=== PATIENT | male | born 1975 | race Caucasian/White ===

== ENCOUNTER → 2016-02-19 | Outpatient (CLI) | payer BC ==
--- NOTE | 2016-02-19 09:29 | REP ---
Clinical: Acute cough . Comparison: 11/16/2014 . Technique: PA and lateral. Findings: The mediastinum and cardiac silhouette are normal. The lung centeno are clear and without acute consolidation, effusion, or pneumothorax. The skeletal structures are intact and normal. Impression: 1. No acute cardiopulmonary process. Signed by Saw Torrez MD 02/19/2016 09:20 A
== END ==
LOC: M SMT 08:39
PROVIDERS: ATTEND Family Medicine
DX: R05 Cough (principal); R61 Generalized hyperhidrosis

== ENCOUNTER → 2016-11-10 | Outpatient (CLI) | payer BC ==
[2016-11-10 14:12] LABS: BASO % 0.5 % (0.0-1.0); EOS # 0.2 10^3/uL (0.0-0.50); EOS % 4.6 % (0.0-3.0); IMMATURE GRANULOCYTE % 0.3 % (0-0); LYMPH # 1.4 10^3/uL (1.5-4.5); LYMPH % 37.1 % (24.0-44.0); MEAN CORPUSCULAR HEMOGLOBIN 31.1 pg (27.0-33.0); MEAN CORPUSCULAR VOLUME 91.4 fl (80.0-96.0); MONO # 0.4 10^3/uL (0.0-0.8); NEUTROPHILS # 1.7 10^3/uL (1.8-7.7); NEUTROPHILS % 46.5 % (36.0-66.0); RED CELL DISTRIBUTION WIDTH 12.2 % (11.5-14.5); WHITE BLOOD COUNT 3.7 10^3/uL (4.0-10.0)
[2016-11-10 16:03] LABS: ALBUMIN 3.7 GM/DL (3.2-5.2); ALBUMIN/GLOBULIN RATIO 1.16 (1.00-1.93); ALKALINE PHOSPHATASE 64 U/L (45-117); ALT/SGPT 24 U/L (12-78); ANION GAP 8 MEQ/L (8-16); AST/SGOT 14 U/L (15-37); BILIRUBIN,TOTAL 0.6 MG/DL (0.2-1.0); BLOOD UREA NITROGEN 18 MG/DL (7-18); CALCIUM LEVEL 8.7 MG/DL (8.5-10.1); CARBON DIOXIDE LEVEL 28 MEQ/L (21-32); CHLORIDE LEVEL 104 MEQ/L (98-107); COMPLEMENT C4 23.8 MG/DL (10-40); CREATININE FOR GFR 1.01 MG/DL (0.70-1.30); GLOMERULAR FILTRATION RATE > 60.0 (>60); GLUCOSE, FASTING 109 MG/DL (70-105); IMMUNOGLOBULIN G 1200 MG/DL (681-1648); IMMUNOGLOBULIN M 58.7 MG/DL (40-230); POTASSIUM SERUM 4.1 MEQ/L (3.5-5.1); SODIUM LEVEL 140 MEQ/L (136-145); THYROXINE (T4) 7.2 UG/DL (4.5-12.0); TOTAL PROTEIN 6.9 GM/DL (6.4-8.2)
[2016-11-11 09:32] LABS: THYROID PEROXIDASE ANTIBODY < 28.0 U/ML (<60.0)
[2016-11-13 00:06] LABS: IMMUNOGLOBULIN D 0.14 mg/dL (<14.11)
[2016-11-18 14:24] LABS: COMPLEMENT C2 2.5 mg/dL (1.6-4.0); COMPLEMENT TOTAL (CH50) 52 U/mL (42-60)
== END ==
LOC: M WUC 10:21
PROVIDERS: ATTEND Allergy & Immunology Allergy
DX: L30.9 Dermatitis, unspecified (principal)

== ENCOUNTER → 2020-03-13 | Outpatient (CLI) | payer OTHER ==
[2020-03-13 12:58] LABS: HEMATOCRIT 48.5 % (42.0-52.0); HEMOGLOBIN 16.5 g/dl (13.5-17.5); MEAN CORPUSCULAR HEMOGLOBIN 30.9 pg (27.0-33.0); MEAN CORPUSCULAR VOLUME 90.8 fl (80.0-96.0); PLATELET COUNT, AUTOMATED 203 10^3/uL (150-450); RED BLOOD COUNT 5.34 10^6/uL (4.30-6.10); WHITE BLOOD COUNT 6.5 10^3/uL (4.0-10.0)
--- NOTE | 2020-03-13 13:15 | REP ---
INDICATION: SCIATICA, RIGHT SIDE COMPARISON: None. TECHNIQUE: AP, lateral, bilateral oblique, and coned-down views of the lumbar spine. FINDINGS: Alignment and lordosis maintained. Vertebral bodies are intact. No acute fracture/compression injury or subluxation. No obvious spondylolysis or spondylolisthesis. Endplate sclerosis and disc space narrowing at L5-S1 noted. Remainder of the examination is essentially age-appropriate and without further degenerative changes. IMPRESSION: Focal degenerative changes at L5-S1. <Electronically signed by Saw Torrez > 03/13/20 [id number]
[2020-03-13 13:22] LABS: ALBUMIN 4.2 GM/DL (3.2-5.2); ALT/SGPT 28 U/L (12-78); BILIRUBIN,TOTAL 0.9 MG/DL (0.2-1.0); BLOOD UREA NITROGEN 18 MG/DL (7-18); CALCIUM LEVEL 9.8 MG/DL (8.5-10.1); CARBON DIOXIDE LEVEL 29 MEQ/L (21-32); CHLORIDE LEVEL 106 MEQ/L (98-107); CHOLESTEROL LEVEL 192 MG/DL (<200); CHOLESTEROL RISK RATIO 2.909 (<5); CREATININE FOR GFR 1.03 MG/DL (0.70-1.30); GLOMERULAR FILTRATION RATE > 60.0 (>60); GLUCOSE, FASTING 106 MG/DL (70-100); HDL CHOLESTEROL 66 MG/DL (>40); LDL CHOLESTEROL 119 MG/DL (<100); NON-HDL-C 126 MG/DL; POTASSIUM SERUM 4.1 MEQ/L (3.5-5.1); SODIUM LEVEL 140 MEQ/L (136-145); TOTAL PROTEIN 7.7 GM/DL (6.4-8.2); TRIGLYCERIDES LEVEL 33 MG/DL (<150)
== END ==
LOC: M WUC 09:29
PROVIDERS: ATTEND Family Medicine
DX: M54.31 Sciatica, right side (principal); M51.37 Other intervertebral disc degeneration, lumbosacral region; Z11.9 Encounter for screening for infectious and parasitic diseases, unspecified; Z79.899 Other long term (current) drug therapy

== ENCOUNTER 2020-03-23 11:43 | Emergency (ER) | payer OTHER ==
[~2020-03-23] VITALS: Ht 190.5 cm; Wt 96.8 kg
--- OUTSIDE RECORDS SUMMARY | 2020-03-23 11:48 | CCD ---
Author Author [facility] Organization [facility] Address Unknown Phone Unavailable Support Name Relationship Address Phone Lyn RODRIGEZ Next Of Kin [address] [place] [address] [address] [place] [address] SELF EMPLOYED Next Of Kin [address] [place] [address] VINCENT [place] [address] UE Next Of Kin Unknown Unavailable Re-disclosure Warning The records that you are about to access may contain information from federally-assisted alcohol or drug abuse programs. If such information is present, then the following federally mandated warning applies: This information has been disclosed to you from records protected by federal confidentiality rules (42 CFR part 2). The federal rules prohibit you from making any further disclosure of this information unless further disclosure is expressly permitted by the written consent of the person to whom it pertains or as otherwise permitted by 42 CFR part 2. A general authorization for the release of medical or other information is NOT sufficient for this purpose. The Federal rules restrict any use of the information to criminally investigate or prosecute any alcohol or drug abuse patient.The records that you are about to access may contain highly sensitive health information, the redisclosure of which is protected by Article 27-F of the [facility] Public Health law. If you continue you may have access to information: Regarding HIV / AIDS; Provided by facilities licensed or operated by the [facility] Office of Mental Health; or Provided by the [facility] Office for People With Developmental Disabilities. If such information is present, then the following [facility] mandated warning applies: This information has been disclosed to you from confidential records which are protected by state law. State law prohibits you from making any further disclosure of this information without the specific written consent of the person to whom it pertains, or as otherwise permitted by law. Any unauthorized further disclosure in violation of state law may result in a fine or residential sentence or both. A general authorization for the release of medical or other information is NOT sufficient authorization for further disc losure. Family History Family Member Name Family Member Gender Family Member Status Date o f Status Description Data Source(s) Unknown Male Problem [facility] ([facility]) Unknown Male Problem [facility] ([facility]) Medications Medication Brand Name Start Date Product Form Dose Route Admi nistrative Instructions Pharmacy Instructions Status Indications Reaction Description Data Source(s) 20 mg 03/12/2020 12:00:00 AM EST tablet 10 TAKE ONE TABLET BY MOUTH TWICE A DAY FOR 5 DAYS TAKE ONE TABLET BY MOUTH TWICE A DAY FOR 5 DAYS SOLD: 2020 [facility] Cyclobenzaprine hydrochloride 10 MG Oral Tablet CYCLOBENZAPR INE HCL 03/12/2020 12:00:00 AM EST tablet 20 TAKE ONE TABLET BY MOUTH TWICE A DAY NEEDED FOR 10 DAYS TAKE ONE TABLET BY MOUTH TWICE A DAY NEEDED FOR 10 DAYS SOLD: 03/12/2020 [facility] doxycycline hyclate 100 MG Oral Capsule DOXYCYCLINE HYCLATE 12/23/2019 12:00:00 AM EST capsule 2 TAKE 2 CAPSULES BY MOUTH ONE TIME FOR ONE DOSE TAKE 2 CAPSULES BY MOUTH ONE TIME FOR ONE DOSE SOLD: 12/23/2019 [facility] Insurance Providers Payer name Policy type / Coverage type Policy ID Covered democrat ID Covered democrat's relationship to mannign Policy Manning Plan Information OBDULIA [id number] SP [id number] O[employer] [id number] 18 [id number] [facility] [id number] 18 [id number] [place] PPO 302/307 [id number] SP [id number] [facility] [employer] U/W Commercial YNC [id number] Self YNC [id number] [employer] BCBS B [id number] S YNC [id number] [facility] Commercial Self SELF PAY UNAVAILABLE SP UNAVAILA BLE
[2020-03-23] MEDS ORDERED: CYCL-707 (11:50)
[2020-03-23] MEDS ORDERED: BOOSTRIX/ADACEL VACCINE (DIPHTH/PERTUSS/ACELL/TETANUS) 0.5ML SYR IM ONE (12:30)
[2020-03-23] MEDS ORDERED: LIDOCAINE 1% MDV 20ML VIAL SC ONE (12:30)
--- OUTSIDE RECORDS SUMMARY | 2020-03-23 12:40 | CCD ---
Author Author [facility] Organization [facility] Address Unknown Phone Unavailable Support Name Relationship Address Phone SELF Next Of Kin Unknown Unavailable INDERJIT RODRIGEZ Next Of Kin [address] [facility] [address] [place], [place] [id number] SELF EMPLOYED Next Of Kin [address] [place] [address] VINCENT [place] [address] UE Next Of Kin Unknown Unavailable Re-disclosure [...] is protected by Article 27-F of the [facility] Public Health law. If you continue you may have access to information: Regarding HIV / AIDS; Provided by facilities licensed or operated by the [facility] Office of Mental Health; or Provided by the [facility] Office for People With Developmental Disabilities. If such information is present, then the following [facility] mandated warning applies: This information has been [...] law may result in a fine or long-term sentence or both. A general authorization for the release of medical or other information is NOT sufficient authorization for further disc losure. Family History Family Member Name Family Member Gender Family Member Status Date o f Status Description Data Source(s) Unknown Male Problem [facility] ([facility]) Unknown Male Problem [facility] ([facility]) Medications Medication Brand Name Start Date Product Form Dose Route Admi nistrative Instructions Pharmacy Instructions Status Indications Reaction Description Data Source(s) 20 mg 03/12/2020 12:00:00 AM EST tablet 10 TAKE ONE TABLET BY MOUTH TWICE A DAY FOR 5 DAYS TAKE ONE TABLET BY MOUTH TWICE A DAY FOR 5 DAYS SOLD: 2020 [facility] Cyclobenzaprine hydrochloride 10 MG Oral Tablet CYCLOBENZAPR INE HCL 03/12/2020 12:00:00 AM EST tablet 20 TAKE ONE TABLET BY MOUTH TWICE A DAY NEEDED FOR 10 DAYS TAKE ONE TABLET BY MOUTH TWICE A DAY NEEDED FOR 10 DAYS SOLD: 03/12/2020 [facility] doxycycline hyclate 100 MG Oral Capsule DOXYCYCLINE HYCLATE 12/23/2019 12:00:00 AM EST capsule 2 TAKE 2 CAPSULES BY MOUTH ONE TIME FOR ONE DOSE TAKE 2 CAPSULES BY MOUTH ONE TIME FOR ONE DOSE SOLD: 12/23/2019 [facility] Insurance Providers Payer name Policy type / Coverage type Policy ID Covered green party ID Covered green party's relationship to manning Policy Manning Plan Information OBDULIA [id number] SP [id number] [facility] [id number] 18 [id number] OBDULIA CARE OF [facility] [id number] 18 [id number] [place] PPO 302/307 [id number] SP [id number] [employer] U/W Commercial YNC [id number] Self YNC [id number] [employer] BCBS B [id number] S YNC [id number] [facility] U[facility] Commercial Self SELF PAY UNAVAILABLE SP UNAVAILA BLE
--- NOTE | 2020-03-23 12:51 | REP ---
INDICATION: router injury left hand. COMPARISON: None. TECHNIQUE: Four views of the left hand are provided. FINDINGS: Four views of the left hand demonstrate soft tissue irregularity along the radial aspect of the middle phalanx of the index finger suggesting a soft tissue injury.. No fracture or subluxation is seen. No opaque foreign body noted. IMPRESSION: No fracture, subluxation, or opaque foreign body seen. Question soft tissue injury middle phalanx index finger along its radial aspect.. <Electronically signed by Calderon Murillo > 03/23/20 [id number]
[2020-03-23 14:27] VITALS: BP 124/90
== END 2020-03-23 14:30 | disposition home or self-care (01) ==
LOC: M ED 11:43
DX: S61.412A Laceration without foreign body of left hand, initial encounter (principal); W26.8XXA Contact with other sharp object(s), not elsewhere classified, initial encounter; Y92.89 Other specified places as the place of occurrence of the external cause; Y99.0 Civilian activity done for income or pay